=== PATIENT | female | born 1940 | race Caucasian/White ===

== ENCOUNTER → 2019-10-19 09:31 | Outpatient (BNVA) | payer MEDICARE, OTHER, SELFPAY | PROVIDERS: Family Provider Nurse Practitioner Family; PCP Nurse Practitioner Family; Visit Provider Registered Nurse | DX: E11.9 Type 2 diabetes mellitus without complications (principal); E78.5 Hyperlipidemia, unspecified; I10 Essential (primary) hypertension | CPT/HCPCS: 80053; 80061; 83036; 85025 ==

== ENCOUNTER → 2019-12-12 10:36 | Outpatient (BNVA) | payer MEDICARE, OTHER, SELFPAY | PROVIDERS: Family Provider Nurse Practitioner Family; PCP Registered Nurse; Visit Provider Registered Nurse | DX: N39.0 Urinary tract infection, site not specified (principal) | CPT/HCPCS: 80053; 81000; 87077; 87086; 87186 ==

== ENCOUNTER → 2020-04-26 11:27 | Outpatient (BNVA) | payer MEDICARE, OTHER, SELFPAY | PROVIDERS: Family Provider Nurse Practitioner Family; PCP Registered Nurse; Visit Provider Registered Nurse | DX: E11.69 Type 2 diabetes mellitus with other specified complication (principal); E78.5 Hyperlipidemia, unspecified; I10 Essential (primary) hypertension | CPT/HCPCS: 80053; 80061; 81000; 83036; 85025 ==

== ENCOUNTER → 2021-06-02 09:44 | Outpatient (BNVA) | payer MEDICARE, OTHER, SELFPAY | PROVIDERS: Family Provider Nurse Practitioner Family; PCP Registered Nurse; Visit Provider Registered Nurse | DX: E55.9 Vitamin D deficiency, unspecified (principal); I10 Essential (primary) hypertension; E11.69 Type 2 diabetes mellitus with other specified complication; E78.5 Hyperlipidemia, unspecified | CPT/HCPCS: 80053; 80061; 83036; 85025 ==

== ENCOUNTER 2022-02-19 12:45 | Day surgery (SDC) | payer MEDICARE, OTHER, SELFPAY ==
[2022-02-19 13:42] VITALS: BP 165/102; PULSE 87; RESP 16; TEMP 36.8; O2SAT 92; BMI 28.8
--- NOTE | 2022-02-19 14:07 | XR_ITS ---
WS: [id number] Exam: XR chest 1V portable [id number] Date/Time of Exam: 02/19/2022 2:07 PM Reason For Exam: SOB No priors. The lungs are fully inflated. Mild infiltrate noted at the right costophrenic angle. This may represe nt pneumonia or chronic change. Mild cardiac enlargement. The mediastinum is normal in contour for [place]. Hiatal hernia noted. Bony structures are intact. Opaque densities superimpose the upper ches t and are likely artifacts within the patient's clothing. XR/XR chest 1V portable [id number] IMPRESSION: 1. Mild infiltrate in the right basal region near the costophrenic angle. This could represent active pneumonia or chronic change. 2. Mild cardiac enlargement. Hiatal hernia.
--- NOTE | 2022-02-19 14:45 | PC.NURSE ---
Patient rounded on in waiting room, patient in no visible distress, sitting with family
[2022-02-19 15:39] LABS: Basophils # 0.1 10^3/uL (0.0-0.1); Basophils % 0.5 %; Eosinophils # 0.2 10^3/uL (0.0-0.8); Eosinophils % 2.5 %; Hematocrit 51.6 % (37.0-47.0); Hemoglobin 16.6 g/dL (11.5-15.3); Lymphocytes % 21.6 %; Mean Corpuscular HGB Conc 32.2 g/dL (30.0-36.0); Mean Corpuscular Hemoglobin 29.9 pg (28.0-34.0); Mean Platelet Volume 10.7 fL (7.4-10.4); Monocytes # 0.6 10^3/uL (0.2-0.9); Monocytes % 6.9 %; Neutrophils # 6.35 10^3/uL (1.8-7.7); Neutrophils % 68.3 %; Nucleated Red Blood Cells % 0 %; Platelet Count 257 10^3/cmm (130-400); Red Blood Count 5.55 10^6/uL (4.1-5.3); White Blood Count 9.3 10^3/uL (4.0-10.0)
--- NOTE | 2022-02-19 15:40 | PC.NURSE ---
Patient rounded on in waiting, family is still with patient, patient is in no visible distress.
[2022-02-19 16:14] LABS: Alanine Aminotransferase 16 U/L (0-33); Albumin Level 4.1 g/dL (3.5-5.2); Alkaline Phosphatase 106 IU/L (35-105); Anion Gap 18.8 (5-19); Aspartate Amino Transferase 17 U/L (0-32); Blood Urea Nitrogen 10 mg/dL (8-23); Calcium 11.2 mg/dL (8.5-10.5); Carbon Dioxide 27 mmol/L (22-29); Chloride 96 mmol/L (98-107); Globulin 3.3 g/dL (1.3-4.6); Glucose 217 mg/dL (65-115); NT Pro B Type Natriuretic Pept 4114 pg/mL (0-450); Osmolality Calculated 292 mOsm/kg (285-295); Potassium 3.8 mmol/L (3.5-5.1); Sodium 138 mmol/L (136-145); Total Bilirubin 1.1 mg/dL (0.15-1.2); Total Protein 7.4 g/dL (6.6-8.7)
--- NOTE | 2022-02-19 16:30 | PC.NURSE ---
Rounding on patient in waiting room, patient in no visible distress sitting in wheelchair with family member
--- NOTE | 2022-02-19 17:25 | PC.NURSE ---
Rounded on patient in the waiting room, patient sitting in wheelchair with family, no visible distress.
--- NOTE | 2022-02-19 18:00 | PC.NURSE ---
Patient rounded on in the waiting room and no visible distress, patient sitting with family member, no needs reported.
--- NOTE | 2022-02-19 18:14 | ECG_ITS ---
[facility] Test Date: 2022-02-19 Pat Name: Marilou Mercado Department: Room: Gender: Female Sales And Customer Relations Rep: : 1940 Requested By: Mayito Ledesma Order Number: [id number] July MD: Terri Blanc M.D. Measurements Intervals [place] Rate: 80 P: CT: QRS: -58 QRSD: 211 T: 99 QT: 428 QTc: 494 Interpretive Statements UNCERTAIN REGULAR RHYTHM INTRAVENTRICULAR CONDUCTION DELAY [130+ ms QRS DURATION] INFERIOR MYOCARDIAL INFARCTION , PROBABLY OLD [40+ ms Q WAVE AND/OR ST/T ABNORMALITY IN II/aVF] ST depressions in lead V3 to V5, suggesting ischemia ST ELEVATION, CONSIDER LATERAL INJURY [MARKED ST ELEVATION W/O NORMALLY INFLECTED T-WAVE IN I/aVL/V5/V6] ACUTE RI No previous ECG available for comparison Electronically Signed On 02-19-2022 21:31:30 CDT by Terri Blanc M.D. https://[email or web address].Anytime DDBallard Power Systemsuniversity hospitals st[facility].[employer]/store/NU/[id number] f
--- NOTE | 2022-02-19 18:15 | PC.NURSE ---
ENTERED ROOM NO REPORT. DR. SUGGS AND RNX1 AT BEDSIDE. ASSUMED CARE OF PT.
--- NOTE | 2022-02-19 18:17 | PC.NURSE ---
1815 PT HAS NO PULSE CODE BLUE CALLED. 1817 PT IN SHOCKABLE RHYTHM PER DR. SUGGS SHOCK DELIVERED. 1818 IO ESTABLISHED IN RIGHT TIBIA. 181 PULSE CHECK V-TACH SHOCKED AT 200J CPR CONTINUED. CPR PAUSED PT INTUBATED CPR CONTINUED. 1821 PULSE CHECK ASYSTOLE. CPR RESUMED. 1MG IVP EPI ADM. 2 L OF NS BOLUS STARTED. [facility] PULSE CHECK ASYSTOLE. RESUMED CPR. 1824 1MG OF [facility]P [facility]. 1825 PULSE CHECK ROSC. 1827 NO PULSE RESUMED CPR. 1828 1MG IVP EPINEPHRINE ADM VIA [facility] VO 182 PULSE CHECK V-FIB SHOCKED AT 200J CPR RESUMED. 1831 EPINEPHRINE 1 MG [facility] 183 PULSE CHECK SHOCKABLE RHYTHM SHOCK DELIVERED AT 200J CPR RESUMED. 1833 50MEQ IVP SODIUM BICARBONATE ADM VIA [facility] VO 1834 EPINEPHRINE 1 MG IVP ADM VIA [facility]. ACHIEVED ROSC. 1835 1 GRAM CALCIUM CHLORIDE IVP ADM. EKG PERFORMED. PT PLACED IN [place]. 300 MG AMIODARONE IVP ADM. ALL DONE VIA [facility] VO 1836 PULSE CHECK NO PULSE. SHOCK DELIVERED PER DR. SUGGS VO. CPR RESUMED. 1837 1MG IVP EPINEPHRINE ADM VIA [facility] VO. 1838 PULSE CHECK. SHOCKABLE RHYTHM PER DR. SUGGS. 200J SHOCK DELIVERED. 1840 EPINEPHRINE 1 MG IVP ADD. PULSE CHECK. SHOCKABLE RHYTHM PER DR. SUGGS 200 J SHOCK DELIVERED. CPR RESUMED. ALL DONE VIA [facility] VO 184 PULSE CHECK SHOCKABLE RHYTHM PER DR. SUGGS. 200J SHOCK DELIVERED. CPR RESUMED. 1843 EPINEPHRINE 1MG [facility]P [facility]. 1844 PULSE CHECK ROSC ACHIEVED. DOPAMINE DRIP STARTED @5MCG/MIN. BP IS 147/110. ROUSSEAU CATHETER PLACED. OG PLACED. 0.5 IVP ATROPINE ADM. [facility] 184 SODIUM BICARBONATE 50 MEQ [facility]. 1855 0.5 IVP [facility]OPINE [facility]. 1856 0.5IVP ATROPINE [facility]. 1858 50 MEQ IV SODIUM BICARB ADM VIA DR. SUGGS VO. 1900 DOPAMINE INCREASED TO 7MCG/MIN PER DR. SUGGS VO. 190 PT MOVED TO [employer]ER REPORT GIVEN TO ERICH GOMEZ ASSUMED CARE.
[2022-02-19] MEDS: sodium chloride 0.9% 500 ML 999 ML IV (18:21)
[2022-02-19] MEDS: sodium chloride 0.9% 1,000 ML 999 ML IV (18:21)
[2022-02-19 18:30] LABS: ABG PCO2 33.5 mmHg (35-45); ABG PH Result 7.24 (7.35-7.45); Alveolar-Arterial Oxygen Gradi 75.5 mmHg (5-10); Arterial Blood Gas Hematocrit 53.1 % (37-47); Base Excess ABG -11.9 mmol/L (-2.0-2.0); Blood Gas Operator Identificat ED; Blood Gas Sample Site Femoral, left; Blood Gas Sample Type Arterial; Carboxyhemoglobin 0.3 %THgb (0.4-20.1); HCO3 ABG 14.3 mmol/L (22-26); HGB O2 Sat 93.5 % (95-100); Ionized Calcium Level - ABG 1.5 mmol/L (1.1-1.4); Methemoglobin 0.8 % (0.4-1.5); Oxygen Device AMBU; Oxygen Saturation ABG 94.5; PO2 ABG 86.2 mmHg (80.0-100.0); Potassium Level - ABG 5.6 mmol/L (3.5-5.0); Total Hemoglobin 17.3 g/dL (12-16)
[2022-02-19] MEDS: DOPamine drip 400 MG/250 ML PREMIX (18:44)
[2022-02-19 18:55] LABS: ABG PH Result 7.07 (7.35-7.45); Alveolar-Arterial Oxygen Gradi 76.3 mmHg (5-10); Arterial Blood Gas Hematocrit 42.7 % (37-47); Base Excess ABG -13.8 mmol/L (-2.0-2.0); Blood Gas Operator Identificat ED; Blood Gas Sample Site Femoral, right; Blood Gas Sample Type Arterial; Carboxyhemoglobin 0.4 %THgb (0.4-20.1); HCO3 ABG 16.8 mmol/L (22-26); HGB O2 Sat 70.7 % (95-100); Ionized Calcium Level - ABG 1.5 mmol/L (1.1-1.4); Oxygen Device AMBU; Oxygen Saturation ABG 71.8; PO2 ABG 55.6 mmHg (80.0-100.0); Potassium Level - ABG 3.3 mmol/L (3.5-5.0); Total Hemoglobin 13.9 g/dL (12-16)
[2022-02-19] MEDS: clopidogrel 300 mg Tablet PO (18:55)
[2022-02-19] MEDS: heparin 5,000 unit/mL INJ 1 mL 4000 UNIT IVP (18:55)
[2022-02-19] MEDS: aspirin 325 mg Tablet PO (18:55)
--- NOTE | 2022-02-19 19:14 | XACV_ITS ---
Exam Room: ED.ROOM11 Ht: 173 cm Wt: 86 kg BSA: 2.06 m2 Gender: Female : 1940 Exam Priority: Routine Procedure(s): Procedure Description: Diagnostic procedure Procedure Description: Coronary Angiography Diagnostic Cath Status: Salvage Diagnostic Findings * Patient was brought to the emergency room with an acute anterior wall RI by EKG. For the details of the patient's history please see the history of present illness of the history and physical. * After the patient was resuscitated in the emergency room she was tenuous but we brought her to the catheterization laboratory. Initially I placed a temporary transvenous pacemaker but upon turning the fluoroscopy on recognized that she had no cardiac motion. We then underwent ACLS protocol and CPR. Ultimately we regained a pulse, blood pressure and had cardiac motion though all was very tenuous. * After achieving a heart rate and blood pressure for just a few minutes I placed a arterial sheath and managed to take a film of the left coronary system. The LAD is completely occluded at the ostium just at the distal portion of the left main. The circumflex was unremarkable. There was minimal flow through the circumflex but no flow in the LAD. Because the patient was in cardiogenic shock I did not visualize the right coronary artery. PCI Status: Salvage PCI LVEF Assessed: No PCI Indication: STEMI - Immediate PCI for STEMI Interventional Findings * I was able to pass a wire through the LAD lesion. Multiple attempts of balloon angioplasty were unsuccessful. Ultimately the patient's cardiac status deteriorated to cardiac standstill once again. There was no flow via the left main or the circumflex. Patient then lost her rhythm again. Ultimately the code was called and the patient was pronounced . I had a very long discussion with the patient's family as mentioned above. Decision for PCI with Surgical Consult: No PCI for Multi-vessel Disease: No Conclusions 1. Acute anterior wall RI, cardiogenic shock, cardiac arrest with unsuccessful angioplasty of the LAD. Recommendations * None. Interventional RX Recommendation: none Diagnostic RX Recommendation: none Anticoagulation: Heparin Procedural Details Dr Sawant arrived with patient to dental laboratory assistant and scrubbed in. Pre-Procedure Time Out. Does the consent match the physician's order: N/A Emergent; Informed Consent not obtained due to time critical life threat. Accurate & Complete Informed Consent: N/A Emergent; Informed Consent not obtained due to time critical life threat. Inpatient/Outpatient History & Physical on Chart: N/A Emergent; Informed Consent not obtained due to time critical life threat. If H&P is completed, is and addenduem needed: N/A Emergent; Informed Consent not obtained due to time critical life threat; If yes, is the addendum complete: N/A Emergent; Informed Consent not obtained due to time critical life threat. Visualize and Verify Site with Patient/Guarantor: N/A. Relevant Radiology Images available: N/A Emergent; Informed Consent not obtained due to time critical life threat. The risks, benefits, and alternatives of sedation and/or procedure were discussed by physician. The patient family agrees to continue. Procedure started. Insulation [place]ose[place] Indications: ACS <= 24 hours. Correct patient, site and procedure confirmed by cath team. Current diagnosis: STEMI. right groin was prepped with chloroprep then draped in the usual sterile fashion. Baseline sample Acquired. HR: 69 BPM. Patient arrived to dental laboratory assistant on a ventilator and will be managed by respiratiory. A 16Fr gu catheter was inserted without resistance maintaining sterile technique. Bag to gravity with clear urine returning. Venous access obtained in R groin for temporary pacemaker placement. Temporary pacemaker placed. Code blue called at 0724. Patient coded until 1947. Pulse obtained. Temporary pacemaker placed and patient being paced. Arterial access obtained with micropuncture set. 6 moldovan XB 3 guide catheter was inserted over the wire. Multiple views taken of left coronary artery. [place] guidewire was advanced through the guide catheter to lesion in the prox LAD. Change healthcare hemo monitoring system down. Unable to obtain BP with portable v/s monitor as well. Pt hooked to zoll monitor. Inflation number : 1 A AB TREK 3.00X15 RX BALLOON was prepped and advanced across the Prox LAD , then inflated to 10 ROGELIO for 0:10 seconds. Inflation number: 2 The AB TREK 3.00X15 RX BALLOON was reinflated across the Prox LAD, to 10 ROGELIO for 0:11 seconds. Balloon inserted to lesion in the prox LAD. Inflation number: 3 The AB TREK 3.00X15 RX BALLOON was reinflated across the Prox LAD, to 10 ROGELIO for 0:10 seconds. No heart muscle movement noted under fluroscopy. Temporary pacemaker turned off to check rhythm. No pulse palpated. Stent balloon out over wire. Wire out. Guide catheter out. Dr. Sawant called TOD 2005. Family updated per Dr. Sawant. Senior Control Systems Engineer, Chanda GOMEZ, in dental laboratory assistant to perform post mortem calls. See code flow sheet for details. Procedure completed. Patient transferred [facility] bed to [facility] Vital chart was stopped. Access Site Site: Right Femoral artery Sheath Size: 6 Fr Hemostasis Success: Unsuccessful Procedure Medications Start: 8:01 PM Stop: 8:01 PM Medication: Heparin Amount: 5000 units Route: I.V. I, the attending physician, have reviewed and verified all procedure medications. Yes, all medications given per verbal order Report Signatures Finalized by Dr. Noman Sawant MD on 02/19/2022 08:55 PM
--- NOTE | 2022-02-19 19:39 | PC.NURSE ---
Patient was rounded on in waiting room, visual on patient and patient in no distress, family with patient.
--- NOTE | 2022-02-19 19:47 | PC.NURSE ---
Rounded on patient in waiting room, patient sitting with family, no distress noted
[2022-02-19 20:09] LABS: Troponin(5th) Baseline 20 ng/L (0-10)
--- NOTE | 2022-02-19 20:14 | ECG_ITS ---
[facility] Test Date: 2022-02-19 Pat Name: Marilou Mercado Department: Room: Gender: Female Paper Cutting Machine Operator: : 1940 Requested By: Mayito Ledesma Order Number: [id number] Reading MD: Noman Sawant M.D. Measurements Intervals [place] Rate: 66 P: LA: QRS: -85 QRSD: 177 T: 36 QT: 365 QTc: 384 Interpretive Statements UNCERTAIN IRREGULAR RHYTHM RIGHT BUNDLE BRANCH BLOCK LEFT ANTERIOR FASCICULAR BLOCK POSSIBLE ANTERIOR MYOCARDIAL INFARCTION , PROBABLY OLD WARNING: DATA QUALITY MAY AFFECT INTERPRETATION Compared to ECG 02/19/2022 18:09:32 Right bundle-branch block now present Left anterior fascicular block now present Intraventricular conduction delay no longer present ST (T wave) deviation no longer present Possible ischemia no longer present Myocardial infarct finding still present Electronically Signed On 02-21-2022 11:59:02 CDT by Noman Sawant M.D. [email or web address] [email or web address].[email or web address]/store/[id number] f
--- NOTE | 2022-02-19 20:27 | PM.HP ---
Providers/Chief Complaint Admitting Physician: Jese Primary Care Provider: HARVEY Nogueira Chief Complaint: Difficulty breathing History of Present Illness Marilou Mercado is a 81 year old female whom we have very little history on. She apparently began to have shortness of breath sometime this morning. I was not able to speak with the patient as by the time I was called and arrived at the emergency room the patient was under CPR and intubated. According to her son and [id number] she began to have shortness of breath this morning sometime around 10 or 11. She was not having chest pain at that time according to the family. Sometime early this afternoon she was brought to the emergency room. According to her [id number] she began to have chest pain after she arrived at the emergency room. She was apparently waiting to be seen until sometime around 6:00 this evening when she was brought back to a room and an EKG was obtained. This was around 6 PM. Upon seeing the EKG the emergency room sent me the EKG by text at 6:12. A STEMI alert was called. I came to the emergency room a few minutes later and by that time the patient had experienced a cardiac arrest, was intubated and was under CPR. She was being treated with the ACLS protocol with epinephrine, bicarbonate, calcium chloride and epinephrine every 5 minutes. The EKG showed a left bundle branch block which was probably new and other evidence of an acute ST segment elevation WI. The emergency room personnel gave her a total of 2 mg of atropine, 4000 units of heparin, Plavix via a orogastric tube, aspirin, amiodarone 300 mg intravenously then an amiodarone drip and a dopamine drip. After approximately 40 to 50 minutes of intermittent CPR in the emergency room the patient regained a very tenuous rhythm and a blood pressure of about 70/40. I surmised that this was probably a anterior wall WI but given that she had been resuscitated I felt it was worth taking her over to the catheterization laboratory to make an attempt to open what I was certain was an occluded LAD. Her chart is devoid of most information. She apparently is a diabetic with obesity and hypertension as well as dyslipidemia. We did do a quick ultrasound in the emergency room after the last resuscitation effort and she did have cardiac motion prior to taking her to the catheterization laboratory. Her EKG in the emergency room showed sinus rhythm with a left bundle branch block but ST and T wave changes consistent with an acute anterior wall WI that involved ST elevation in lead V2 with depression in leads V4 and V5. Her blood sugar was over 400. Her BNP was greater than 4000. The blood gas in the emergency room revealed a PO2 of 56, PCO2 of 58 and a pH of 7.07. Review of Systems Narrative: The review of systems is not available due to the patient's clinical state Medications/Allergies Home Medications Medication Instructions Recorded Confirmed Last Taken Type atenolol 100 mg-chlorthalidone 25 1 tab PO DAILY 90 days #90 tabs 06/02/21 07/08/21 Unknown Rx mg tablet cholecalciferol (vitamin D3) 25 1,000 unit PO ONCE #90 caps 06/02/21 07/08/21 Unknown Rx mcg (1,000 unit) capsule (Vitamin D3) lovastatin 40 mg tablet See Rx Instructions .Route 06/02/21 07/08/21 Unknown Rx .COMPLEX #90 tabs metformin 500 mg tablet See Rx Instructions .Route 06/02/21 07/08/21 Unknown Rx .COMPLEX 90 days #180 tabs potassium chloride 20 mEq oral 20 meq PO DAILY #30 ea 07/02/21 07/08/21 Unknown Rx packet (Klor-Con) Allergies Allergy/AdvReac Type Severity Reaction Status Date / Time No Known Allergies Allergy Verified 06/02/21 08:51 PFSH Acute PFSH: Medical History (Updated 02/19/22 @ 20:40 by Noman Sawant MD) Acute anterior wall WI Cardiac arrest Cardiogenic shock Type 2 diabetes mellitus Vitamin D deficiency Social History Smoking and tobacco status: never smoked Alcohol intake: never Adopted: No Caregiver/support person: No Lives independently: Yes Housing: Apartment Marital status: / Current occupational status: disabled History of recent travel: No Current gender identity: Female Vitals/I&O/Wt Last Vital Signs Temp 98.3 F 02/19/22 13:42 Pulse 87 02/19/22 13:42 Resp 16 02/19/22 13:42 BP 165/102 02/19/22 13:42 Pulse Ox 92 02/19/22 13:42 O2 Del Method 02/19/22 13:42 Weight last 48 hrs Weight 190 lb Physical Exam Narrative: GENERAL: In general she is unresponsive, intubated and under CPR. The skin is mottled and cold. HEENT: Exam within normal limits. NECK: Supple without jugular vein distention. The carotid upstroke is normal without bruits. BACK: Exam normal. LUNGS: Clear. HEART: Regular rate and rhythm. ABDOMEN: Benign without organomegaly or tenderness. EXTREMITIES: No edema. NEUROLOGIC: Exam not done SKIN: Mottled and cold with purplish discoloration. Data : 02/19/22 15:22 02/19/22 15:22 A&P Assessment and plan (1) Cardiac arrest: Status: Acute (2) Acute anterior wall WI: Status: Acute (3) Cardiogenic shock: Status: Acute (4) Type 2 diabetes mellitus: Status: Acute Qualifiers: Diabetes mellitus fci insulin use: without fci use Diabetes mellitus complication status: without complication Qualified Code(s): E11.9 - Type 2 diabetes mellitus without complications (5) Hyperlipidemia associated with type 2 diabetes mellitus: Status: Acute (6) Essential hypertension: Status: Acute Plan Given the length of time of the myocardial infarction, the likelihood that it is an anterior wall WI with a very proximal LAD lesion and the length of time of CPR it is unlikely she will survive this. She does have a heart rate, wide-complex rhythm and a minimal blood pressure. I have spoken to the family at length that included her son, [id number], daughter and son-in-law. I am willing to be aggressive since we have a rhythm and blood pressure. We will take her over to the cardiac catheterization laboratory, place a temporary pacemaker and then see if we can image her coronary arteries and possibly perform intervention. I have told the family however that the likelihood of survival in this circumstance is very low. Attestations Medical Necessity Statement*: Acute anterior wall WI with sudden cardiac . Coding Level of Care Code New Pt Acute Disaster Or Damage Control Specialist for [facility] Fwd Patient Type New History Comprehensive Exam Comprehensive Medical Decision Making High Complexity Diagnoses Cardiac arrest I46.9 Acute anterior wall WI I21.09 Cardiogenic shock R57.0 Type 2 diabetes mellitus E11.9 Diabetes mellitus percussion teacher insulin use: without percussion teacher use Diabetes mellitus complication status: without complication Hyperlipidemia associated with type 2 diabetes mellitus E11.69; E78.5 Essential hypertension I10
--- NOTE | 2022-02-19 20:41 | P.DES_ITS ---
Discharge Providers DDS Date of Admission: 02/19/2022 Date Summary Completed: 02/19/22 Attending Provider at Admission: Jese Attending Provider at Discharge: Noman Sawant MD Primary Care Provider: HARVEY Nogueira Diagnoses Hospital Diagnoses (1) Cardiac arrest: (2) Acute anterior wall WY: (3) Cardiogenic shock: (4) Type 2 diabetes mellitus: Qualifiers: Diabetes mellitus nursing home insulin use: without medical terminologist use Diabetes mellitus complication status: without complication Qualified Code(s): E11.9 - Type 2 diabetes mellitus without complications (5) Hyperlipidemia associated with type 2 diabetes mellitus: (6) Essential hypertension: Reason for Visit Reason for Visit Difficulty breathing Brief History: Please see the history and physical. The patient had shortness of breath earlier today in the mid-to-late morning. She came to the emergency room. Upon arrival to the emergency room began having chest pain. She was placed in a room around 6 PM as I understand it. I received a call at 6:12 this evening with an EKG which clearly revealed an acute anterior wall WY. I came to the emergency room immediately. By that time she had suffered a CODE BLUE and was under CPR and was intubated. Summary Summary Summary: She underwent CPR for almost an hour in the emergency room. She would obtain a rhythm and a minimal blood pressure and then it would deteriorate into a ventricular tachycardia and fibrillation. This occurred several times in the emergency room. Finally after multiple rounds of medications and CPR she regained a pulse and a very tenuous blood pressure. Ultrasound in the emergency room revealed cardiac motion. In order to give her a chance we brought her over to the cardiac catheterization laboratory. Upon arrival in the cardiac catheterization laboratory she had a episode of cardiac arrest again. Fluoroscopy revealed no cardiac motion. I quickly put a temporary transvenous pacemaker in place and we reinstituted CPR and ACLS protocol. We were able to regain a rhythm and a very minimal blood pressure once again. I placed a temporary wire and paced the heart at 100 bpm. After this, I placed a left heart catheter and performed coronary angiography. This revealed a flush occlusion of the very ostial LAD with no flow beyond this. The circumflex was patent. I tried multiple balloon angioplasties to open the LAD but there was simply very little flow forward and significant amounts of thrombus. I was never able to get any flow down the LAD. Ultimately the contrast material stopped moving through the circumflex and she was in cardiac standstill again. After about 45 minutes of intermittent CPR in these attempts in the cardiac catheterization laboratory the patient was pronounced . I communicated with her family multiple times throughout the procedure. I spoke to them in detail about what happened today. Ultimately they were able to come in the catheterization laboratory and see her after the procedure was completed. Family members involved her son, [id number], daughter and son-in-law. Discharge Plan Discharge Patient Disposition: Home Condition: Stable Prescriptions: No Action atenolol-chlorthalidone 100-25 mg tablet 1 tab PO DAILY 90 Days Qty: 90 3RF cholecalciferol (vitamin D3) [Vitamin D3] 25 mcg (1,000 unit) capsule 1,000 unit PO ONCE Qty: 90 3RF lovastatin 40 mg tablet See Rx Instructions .ROUTE .COMPLEX Qty: 90 3RF Dose Instruction: TAKE 1 TABLET BY MOUTH 1 TIME DAILY Rx Instructions: TAKE 1 TABLET BY MOUTH 1 TIME DAILY metformin 500 mg tablet See Rx Instructions .ROUTE .COMPLEX 90 Days Qty: 180 3RF Dose Instruction: TAKE 1 TABLET BY MOUTH TWICE DAILY Rx Instructions: TAKE 1 TABLET BY MOUTH TWICE DAILY potassium chloride [Klor-Con] 20 mEq packet 20 meq PO DAILY Qty: 30 0RF DS Attestations Time Spent in /Discharge Care*: greater than 30 min Quality - AMI: AMI present?: Yes Quality - Stroke: CVA present?: No Quality - VTE: VTE present?: No Coding Level of Care Code Acute Irish Moss Operator for Jana Escalante Diagnoses Cardiac arrest I46.9 Acute anterior wall WY I21.09 Cardiogenic shock R57.0 Type 2 diabetes mellitus E11.9 Diabetes mellitus nursing home insulin use: without nursing home use Diabetes mellitus complication status: without complication Hyperlipidemia associated with type 2 diabetes mellitus E11.69; E78.5 Essential hypertension I10
--- NOTE | 2022-02-20 08:12 | W.ED.GENADLT ---
HPI - General Adult General: Chief complaint: Shortness of Breath/Dyspnea Stated complaint: Difficulty breathing Time Seen by Provider: 02/19/22 18:29 Source: family Mode of arrival: wheelchair Limitations: altered mental status History of Present Illness: 81-year-old female was brought emergently from the waiting room poorly responsive. I was called by nursing staff to attend to the patient immediately. Upon my entering the room there was a family member present who did assist with some history. The patient was nonresponsive was extremely diaphoretic and somewhat combative. She did not respond verbally in any way at any time. Did reach out and grab at staff and at the bed railing. Patient would not follow any commands. On observing her she was moving all 4 extremities spontaneously. Symmetric face was symmetrical. Asked nursing staff to establish an IV and placed the patient on the monitor while simultaneously following for twelve-lead EKG. Twelve-lead EKG shows an anterior ST elevation NH. STEMI alert was called. Shortly after the STEMI alert was called patient became completely nonresponsive pulseless and apneic. ACLS protocols were initiated. Per the family member at the bedside the patient had come to the ER because of some mild shortness of breath for the last few days. Family members stated that up until just before collapsing patient had not complained of any chest pain. The family member was not aware of any history of coronary artery disease but did confirm for us that the patient has diabetes. I was in the room during this entire time and was unable to review the chart at that point. Review of Systems General: Reports: ROS unobtainable due to medical condition PFS ED PFSH: Medical History (Updated 02/20/22 @ 08:25 by Mc Adorno DO) Acute anterior wall NH Cardiac arrest Cardiogenic shock Type 2 diabetes mellitus Vitamin D deficiency Social History Smoking and tobacco status: never smoked Alcohol intake: never Adopted: No Caregiver/support person: No Lives independently: Yes Housing: Apartment Marital status: / Current occupational status: disabled History of recent travel: No Current gender identity: Female Physical Exam Const: EXAM LIMITATIONS: altered mental status GENERAL APPEARANCE: in distress and diaphoretic NUTRITIONAL APPEARANCE: overweight ORIENTATION/CONSCIOUSNESS: Yes patient obtunded HENMT: COMMON NORMALS: normocephalic and atraumatic HEAD & SCALP: normocephalic and atraumatic Resp: EFFORT & INSPECTION: Yes symmetric chest movement and Yes labored AUSCULTATION: crackles Cardio: RATE: tachycardic GI: COMMON NORMALS: Soft to palpation, non-tender, No hepatosplenomegaly present, no masses and no bruits AUSCULTATION: Yes normoactive bowel sounds PALPATION: Yes Soft to palpation, No Tenderness to palpation present (GI), No Guarding due to palpation present (GI) and Yes No hepatosplenomegaly present Extremity: OTHER: Femoral pulses equal bilaterally Neuro: OTHER: No sign of lateralizing neurologic deficits on initial exam. Procedures Intubation Additional Comments: Assisted by Dr. Tsang. Dr. Tsang intubated the patient after the CODE BLUE had been called and ACLS protocols were initiated. Course Vital Signs: Vital signs: Vital Signs Temperature 98.3 F 02/19/22 13:42 Pulse Rate 87 02/19/22 13:42 Respiratory Rate 16 02/19/22 13:42 Blood Pressure 165/102 02/19/22 13:42 Pulse Oximetry 92 02/19/22 13:42 Oxygen Delivery Me thod 02/19/22 13:42 MDM - General Adult Medical Decision Making ACLS protocols followed. Patient had multiple shockable rhythms and V. tach and then later in V. fib. See the nurses notes for the course and times of the ACLS protocol resuscitations. Dr. Sawant responded shortly after the STEMI alert was called and advised test during the resuscitation as well as assisting with keeping the family informed. Once ROSC had been achieved patient was stabilized dopamine was started. Pulse and blood pressure persisted. We had several times established ROSC only to see the rhythm deteriorate to V. fib within 1 to 2 minutes. Amiodarone was given IV push bolus and then a drip was started along with dopamine. Dopamine titrated up for effect. Once patient appeared to maintain rhythm with spontaneous circulation Dr. Sawant recommended that she proceed to angiography. Patient discharged from the ER to [facility] under the care of Dr. Olivares Medical Records I reviewed the patient's medical records. Lab Data I reviewed the patient's lab results. (Reviewed as they became available. ABG shown to me during the resuscitation) : 02/19/22 15:22 02/19/22 15:22 Radiology Impressions Chest X-Ray 02/19/22 14:07 IMPRESSION: 1. Mild infiltrate in the right basal region near the costophrenic angle. This could represent active pneumonia or chronic change. 2. Mild cardiac enlargement. Hiatal hernia. Laboratory Results WBC 9.3 10^3/uL (4.0-10.0) 02/19/22 15:22 RBC 5.55 10^6/uL (4.1-5.3) H 02/19/22 15:22 Hgb 16.6 g/dL (11.5-15.3) H 02/19/22 15:22 Hct 51.6 % (37.0-47.0) H 02/19/22 15: MCV 93.0 fl (81-99) 02/19/22 15: MCH 29.9 pg (28.0-34.0) 02/19/22 15: MCHC 32.2 g/dL (30.0-36.0) 02/19/22 15: RDW 14.0 % (12.1-15.1) 02/19/22 15: Plt Count 257 10^3/cmm (130-400) 02/19/22 15:22 MPV 10.7 fL (7.4-10.4) H 02/19/22 15: Neut % (Auto) 68.3 % 02/19/22 15: Lymph % (Auto) 21.6 % 02/19/22 15:22 [place] % (Auto) 6.9 % 02/19/22 15: Eos % (Auto) 2.5 % 02/19/22: Baso % (Auto) 0.5 % 02/19/22:22 Neut # (Auto) 6.35 10^3/uL (1.8-7.7) 02/19/22 15: Lymph # (Auto) 2.0 10^3/uL (0.8-4.8) 02/19/22: [place] # (Auto) 0.6 10^3/uL (0.2-0.9) 02/19/22 15:22 Eos # (Auto) 0.2 10^3/uL (0.0-0.8) 02/19/22 15: Baso # (Auto) 0.1 10^3/uL (0.0-0.1) 02/19/22 15:22 Nucleated RBC % (auto) 0 % 02/19/22 15:22 Nucleated RBCs # 0.0 /100WBC 02/19/22 15:22 Specimen Type Arterial 02/19/22 18:53 Sample Site Femoral, right 02/19/22 18:53 ABG pH 7.07 (7.35-7.45) L* 02/19/22 18:53 ABG pCO2 58.0 mmHg (35-45) H 02/19/22 18:53 ABG pO2 55.6 mmHg (80.0-100.0) L 02/19/22 18:53 ABG HCO3 16.8 mmol/L (22-26) L 02/19/22 18:53 ABG O2 Saturation 71.8 02/19/22 18:53 ABG Base Excess -13.8 mmol/L (-2.0-2.0) L 02/19/22 18:53 Claudio Test N/a 02/19/22 18:53 A-a O2 Gradient 76.3 mmHg (5-10) H 02/19/22 18:53 Hematocrit 42.7 % (37-47) 02/19/22 18:53 Hgb O2 Saturation 70.7 % (95-100) L 02/19/22 18:53 Carboxyhemoglobin 0.4 %THgb (0.4-20.1) 02/19/22 18:53 Methemoglobin 1.0 % (0.4-1.5) 02/19/22 18:53 Total Hemoglobin 13.9 g/dL (12-16) 02/19/22 18:53 Sodium 149.0 mmol/L (131-143) H 02/19/22 18:53 Potassium 3.3 mmol/L (3.5-5.0) L 02/19/22 18:53 Glucose 440.0 mg/dL (70-115) H 02/19/22 18:53 Ionized Calcium 1.5 mmol/L (1.1-1.4) H 02/19/22 18:53 O2 Delivery Device Ambu 02/19/22 18:53 O2 Liters/Min 15.0 % 02/19/22 18:53 FiO2 100.0 % 02/19/22 18:53 [facility] Specialist ID Ed 02/19/22 18:53 Sodium 138 mmol/L (136-145) 02/19/22 15:22 Potassium 3.8 mmol/L (3.5-5.1) 02/19/22 15:22 Chloride 96 mmol/L (98-107) L 02/19/22 15:22 Carbon Dioxide 27 mmol/L (22-29) 02/19/22 15:22 Anion Gap 18.8 (5-19) 02/19/22 15:22 BUN 10 mg/dL (8-23) 02/19/22 15:22 Creatinine 0.6 mg/dL (0.5-0.9) 02/19/22 15:22 GFR Calculation Not Reportable 02/19/22 15:22 Glucose 217 mg/dL (65-115) H 02/19/22 15:22 Calculated Osmolality 292 mOsm/kg (285-295) 02/19/22 15:22 Calcium 11.2 mg/dL (8.5-10.5) H 02/19/22 15:22 Total Bilirubin 1.1 mg/dL (0.15-1.2) 02/19/22 15:22 AST 17 U/L (0-32) 02/19/22 15:22 ALT 16 U/L (0-33) 02/19/22 15:22 Alkaline Phosphatase 106 IU/L (35-105) H 02/19/22 15:22 Troponin T Baseline 20 ng/L (0-10) H 02/19/22 15:22 Troponin T 120 Minute Cancelled 02/19/22 18:54 Delta Troponin T Cancelled 02/19/22 18:54 NT-Pro-B Natriuret Pep 4114 pg/mL (0-450) H 02/19/22 15:22 Total Protein 7.4 g/dL (6.6-8.7) 02/19/22 15:22 Albumin 4.1 g/dL (3.5-5.2) 02/19/22 15:22 Globulin 3.3 g/dL (1.3-4.6) 02/19/22 15:22 Critical Care Time Critical Care Time: Critical Care Time: Yes Total Critical Care Time: 60 Attestation: The high probability of a clinically significant, sudden or life threatening deterioration of the patient's cardiovascular system(s) required my full and direct attention, intervention and personal management. The critical care time is as shown. This time is in addition to time spent performing any reported procedures but includes the following: [x] Data and vital sign review and interpretation [x] Patient assessment, examination and intervention [x] Documentation [x] Medication orders and management Discharge Plan Discharge Patient Disposition: Admitted As Inpatient Clinical Impression: Acute anterior wall NH, Cardiogenic shock, Cardiac arrest, Type 2 diabetes mellitus, Hyperlipidemia associated with type 2 diabetes mellitus, Essential hypertension Condition: Stable Coding Level of Care Code ED [facility] for Jana Escalante
== END 2022-02-19 20:47 | disposition expired ==
LOC: ER 18:29 → CCL 19:05
PROVIDERS: Emergency Medicine; Physician Assistant; Emergency Provider Family Medicine; PCP Registered Nurse; Visit Provider Internal Medicine Cardiovascular Disease
DX: I46.9 Cardiac arrest, cause unspecified (principal); I21.09 ST elevation (STEMI) myocardial infarction involving other coronary artery of anterior wall; R57.0 Cardiogenic shock; E11.69 Type 2 diabetes mellitus with other specified complication; E78.5 Hyperlipidemia, unspecified; I10 Essential (primary) hypertension; E66.9 Obesity, unspecified; Z68.28 Body mass index [BMI] 28.0-28.9, adult; I44.7 Left bundle-branch block, unspecified
CPT/HCPCS: 33210; 71045; 80051; 80053; 82330; 82805; 83880; 84484; 85025; 92920; 93005; 93454; 96360; 99291; 99292; C1725; C1769; C1779; C1887; C1894; J0153; J0171; J0282; J0330; J0461; J1265; J1644; J2704; J3490; J7040; J7050; Q9967